=== PATIENT | male | born 1970 | race Caucasian/White ===

== ENCOUNTER 2016-12-30 11:10 | Inpatient (IN) | payer SELFPAY ==
[~2016-12-30] VITALS: Ht 180.3 cm; Wt 111.0 kg
[~2016-12-30 11:10] MED LIST: BACT800T5 PO; CEPH500C3 PO; CLOP75 PO; LISI2.5T3 PO; OMEP20CA5 PO
[2016-12-30 11:19] VITALS: BP 138/81; PULSE 89; RESP 18; RESP 20; TEMP 97.8; O2SAT 96; O2SAT 99
--- NOTE | 2016-12-30 11:24 | PD ---
HPI Chief Complaint: respiratory arrest Time Seen by Provider: 11:16 Travel History International Travel<30 days: No Contact w/Intl Traveler<30days: No History of Present Illness HPI This is a 46-year-old male who has a history of 2 stents and currently doesn't take any medication who presents to the emergency department having had an episode where he went unresponsive and cyanotic in front of his friends. They started CPR. When you back arrived to the scene he had agonal respirations. They administered 0.4 of Narcan and the patient immediately woke up. The patient reports that he's used IV drugs in the past but hasn't used them in several years and he denies any use of opiates today. He does say he had a little bit of chest discomfort this morning, moderate severity, nonradiating in the center of his chest. Currently he feels fine and doesn't remember what happened. He denies any chest pain now. PFSH Past Medical History Cardiac Catheterization: Yes (STENTS X2) Coronary Artery Disease: Yes Diminished Hearing: No Hypertension: Yes Immunizations Current: Yes Myocardial Infarction: Yes Social History Alcohol Use: Yes (2 BEERS/DAY) Tobacco Use: Yes (1 PPD) Substance Use: No Allergies-Medications (Allergen,Severity, Reaction): Coded Allergies: *MDRO Multi-Drug Resistant Organism (Verified Adverse Reaction, Unknown, ) MRSA (chest wound) - 05/13/2015 Reported Meds & Prescriptions Reported Meds & Active Scripts Active No Active Prescriptions or Reported Medications Review of Systems Except as stated in HPI: all other systems reviewed are Neg Physical Exam Narrative GENERAL:Well appearing, no acute distress SKIN: Focused skin assessment warm and dry. HEAD: Atraumatic. Normocephalic. EYES: Pupils equal and round. No injection or drainage. ENT: Moist mucous membranes NECK: Trachea midline. CARDIOVASCULAR: Regular rate and rhythm. No murmur appreciated. RESPIRATORY: Clear to auscultation. Breath sounds equal bilaterally. GASTROINTESTINAL: Abdomen soft, non-tender, nondistended. MUSCULOSKELETAL: No obvious deformities. NEUROLOGICAL: Awake and alert. No obvious cranial nerve deficits. Moving all extremities. PSYCHIATRIC: Appropriate mood and affect; insight and judgment normal. Data Data Last Documented VS Vital Signs Date Time Temp Pulse Resp B/P (MAP) Pulse Ox O2 Delivery O2 Flow Rate FiO2 12/30/16 13:17 97.8 78 18 123/81 (95) 97 Nasal Cannula 2.00 Orders Orders Electrocardiogram (12/30/16 11:21) Complete Blood Count With Diff (12/30/16 11:21) Comprehensive Metabolic Panel (12/30/16 11:21) Creatine Kinase (Cpk) (12/30/16 11:21) Troponin I (12/30/16 11:21) Urinalysis - C+S If Indicated (12/30/16 11:21) Blood Glucose (12/30/16 11:21) Ecg Monitoring (12/30/16 11:21) Iv Access Insert/Monitor (12/30/16 11:21) Oximetry (12/30/16 11:21) Sodium Chloride 0.9% Flush (Ns Flush) (12/30/16 11:30) Drug Screen, Random Urine (12/30/16 11:21) Alcohol (Ethanol) (12/30/16 11:21) Sodium Chlor 0.9% 1000 Ml Inj (Ns 1000 M (12/30/16 11:30) CKMB (12/30/16 11:20) CKMB% (12/30/16 11:20) Sodium Chlor 0.9% 1000 Ml Inj (Ns 1000 M (12/30/16 12:45) Sodium Chlor 0.9% 1000 Ml Inj (Ns 1000 M (12/30/16 12:45) Admit Order (Ed Use Only) (12/30/16 13:17) Aspirin Chew (Aspirin Chew) (12/30/16 13:30) Labs Laboratory Tests Test 12/30/16 11:20 12/30/16 12:30 White Blood Count 9.1 TH/MM3 Red Blood Count 4.68 MIL/MM3 Hemoglobin 14.2 GM/DL Hematocrit 41.6 % Mean Corpuscular Volume 88.8 FL Mean Corpuscular Hemoglobin 30.4 PG Mean Corpuscular Hemoglobin Concent 34.3 % Red Cell Distribution Width 13.4 % Platelet Count 181 TH/MM3 Mean Platelet Volume 10.1 FL Neutrophils (%) (Auto) 59.5 % Lymphocytes (%) (Auto) 27.8 % Monocytes (%) (Auto) 10.3 % Eosinophils (%) (Auto) 1.3 % Basophils (%) (Auto) 1.1 % Neutrophils # (Auto) 5.4 TH/MM3 Lymphocytes # (Auto) 2.5 TH/MM3 Monocytes # (Auto) 0.9 TH/MM3 Eosinophils # (Auto) 0.1 TH/MM3 Basophils # (Auto) 0.1 TH/MM3 CBC Comment DIFF FINAL Differential Comment Blood Urea Nitrogen 8 MG/DL Creatinine 0.96 MG/DL Random Glucose 142 MG/DL Total Protein 7.6 GM/DL Albumin 3.7 GM/DL Calcium Level 7.6 MG/DL Alkaline Phosphatase 130 U/L Aspartate Amino Transf (AST/SGOT) 185 U/L Alanine Aminotransferase (ALT/SGPT) 155 U/L Total Bilirubin 1.2 MG/DL Sodium Level 139 MEQ/L Potassium Level 3.2 MEQ/L Chloride Level 100 MEQ/L Carbon Dioxide Level 24.7 MEQ/L Anion Gap 14 MEQ/L Estimat Glomerular Filtration Rate 84 ML/MIN Total Creatine Kinase 1763 U/L Creatine Kinase MB 6.5 NG/ML Creatine Kinase MB % 0.4 % Troponin I 0.07 NG/ML Ethyl Alcohol Level 101 MG/DL Urine Color LIGHT-YELLOW Urine Turbidity CLEAR Urine pH 6.5 Urine Specific Calvin 1.010 Urine Protein TRACE mg/dL Urine Glucose (UA) NEG mg/dL Urine Ketones NEG mg/dL Urine Occult Blood TRACE Urine Nitrite NEG Urine Bilirubin NEG Urine Urobilinogen LESS THAN 2.0 MG/DL Urine Leukocyte Esterase NEG Urine RBC 1 /hpf Urine WBC LESS THAN 1 /hpf Urine Hyaline Casts 6 /lpf Urine Mucus FEW /lpf Microscopic Urinalysis Comment CATH-CULT NOT IND Urine Opiates Screen NEG Urine Barbiturates Screen NEG Urine Amphetamines Screen NEG Urine Benzodiazepines Screen NEG Urine Cocaine Screen POS Urine Cannabinoids Screen NEG [place] Medical Decision Making Medical Screen Exam Complete: Yes Emergency Medical Condition: Yes Interpretation(s) Afebrile, normotensive, no tachycardia No leukocytosis Transaminitis CK is 1763 Troponin is 0.07 Alcohol is 101 Urine drug screen is positive for cocaine Differential Diagnosis Rhabdomyolysis, myocardial infarction, cardiac arrest, opiate overdose, electrolyte abnormality Narrative Course This is a 46-year-old male who presents to the emergency department having had an episode where he stopped breathing and went unresponsive with his friends. They performed CPR and EMS administered Narcan at which time he regained consciousness. He was placed on a monitor here and an IV was established. Labs demonstrate transaminitis and an elevated CK as well as a borderline troponin. Given the patient's history of stents in the past I strongly advised him to be admitted for serial cardiac enzymes. It was EMSs initial impression that the patient likely overdosed on opiates however he firmly denies opiate use and his urine drug screen is negative for opiates. This makes me even more concerned that he may have had a cardiac etiology to the episode today. He was admitted to the resident service and started on IV fluids. Unfortunately he didn't want to stay in the hospital and he signed out AGAINST MEDICAL ADVICE. It was discussed with him multiple times that this could be a life-threatening condition and that he could have sudden later today if we don't identify a cardiac arrhythmia or coronary blockage. Patient expressed understanding and was able to make his own decisions on my assessment. Scripts No Active Prescriptions or Reported Meds Disposition: 07 AGAINST MEDICAL ADVICE Kristan Ogden MD Dec 30, 2016 11:24
[2016-12-30 11:27] VITALS: RESP 20; O2SAT 94; O2SAT 96
[2016-12-30] MEDS ORDERED: SODIUM CHLORIDE 0.9% FLUSH 5 ML FLUSH IV FLUSH PRN (11:30)
[2016-12-30] MEDS ORDERED: SODIUM CHLOR 0.9% 1000 ML INJ 1,000 ML IV SCH ×3 (11:30→12:45)
[2016-12-30 11:56] LABS: AUTOMATED NEUTROPHIL # 5.4 TH/MM3 (1.8-7.7); BASOPHIL # 0.1 TH/MM3 (0-0.2); BASOPHIL % 1.1 % (0.0-2.0); EOSINOPHIL # 0.1 TH/MM3 (0-0.4); EOSINOPHIL % 1.3 % (0.0-4.0); HEMATOCRIT 41.6 % (39.0-51.0); HEMO FLAGS DIFF FINAL; LYMPH % 27.8 % (9.0-44.0); LYMPHOCYTE # 2.5 TH/MM3 (1.0-4.8); MEAN CELL VOLUME 88.8 FL (80.0-100.0); MEAN CORPUSCULAR HEMOGLOBIN 30.4 PG (27.0-34.0); MEAN CORPUSCULAR HGB CONC 34.3 % (32.0-36.0); MONO % 10.3 % (0.0-8.0); NEUT % 59.5 % (16.0-70.0); PLATELET COUNT 181 TH/MM3 (150-450); RED BLOOD COUNT 4.68 MIL/MM3 (4.50-5.90); RED CELL DISTRIBUTION WIDTH 13.4 % (11.6-17.2); WHITE BLOOD COUNT 9.1 TH/MM3 (4.0-11.0)
[2016-12-30 12:15] LABS: ALT (GPT) 155 U/L (12-78); ANION GAP 14 MEQ/L (5-15); AST (GOT) 185 U/L (15-37); BICARBONATE 24.7 MEQ/L (21.0-32.0); BLOOD UREA NITROGEN 8 MG/DL (7-18); CHLORIDE 100 MEQ/L (98-107); GLOMERULAR FILTRATION RATE 84 ML/MIN (>89); POTASSIUM 3.2 MEQ/L (3.5-5.1); SODIUM (NA) 139 MEQ/L (136-145)
[2016-12-30 12:16] VITALS: BP 134/80; PULSE 82; RESP 17; TEMP 97.8; O2SAT 96
[2016-12-30 12:21] LABS: ALCOHOL 101 MG/DL (0-5)
[2016-12-30 12:29] LABS: ALKALINE PHOSPHATASE 130 U/L (45-117); CREATINE KINASE 1763 U/L (39-308); TOTAL BILIRUBIN ADULT 1.2 MG/DL (0.2-1.0)
[2016-12-30 12:42] LABS: CKMB 6.5 NG/ML (0.5-3.6)
[2016-12-30 13:05] LABS: BLOOD, URINE TRACE (NEG); COMMENT (UR) CATH-CULT NOT IND; CULTURE IF INDICATED CATH CULTURE NOT IND; GLUCOSE,URINE NEG (NEG); HYALINE CAST, URINE 6 /lpf (RARE); KETONE, URINE NEG (NEG); MUCUS URINE FEW /lpf (OCC); NITRITE,URINE NEG (NEG); PH, URINE 6.5 (5.0-8.5); URINE COLOR LIGHT-YELLOW (YELLW/STRAW)
[2016-12-30 13:17] VITALS: BP 123/81; PULSE 78; RESP 18; TEMP 97.8; O2SAT 97
[2016-12-30] MEDS ORDERED: ASPIRIN 81 MG CHEW TAB CHEW ONE (13:30)
--- NOTE | 2016-12-30 15:15 | EKG ---
Date Performed: 12/30/2016 Time Performed: 11:25:30 PTAGE: 46 years EKG: Sinus rhythm POSSIBLE LATERAL MYOCARDIAL INFARCTION ABNORMAL ECG PREVIOUS TRACING : 05/27/2010 00.54 Compared to prior tracing no significant change DOCTOR: Mahesh Osuna Interpretating Date/Time 12/30/2016 15:14:55
== END 2016-12-30 16:45 | disposition left against medical advice (07) | DRG 948 ==
LOC: NEPD 11:10 → NEDA 13:18
PROVIDERS: ADMIT Family Medicine; ATTEND Family Medicine
DX: R41.82 Altered mental status, unspecified (principal); I10 Essential (primary) hypertension; F17.210 Nicotine dependence, cigarettes, uncomplicated; I25.10 Atherosclerotic heart disease of native coronary artery without angina pectoris; Z95.5 Presence of coronary angioplasty implant and graft; I25.2 Old myocardial infarction
CPT/HCPCS: 80053; 80307; 81001; 82550; 82552; 84484; 85025; 93005; 96360; J7030